=== PATIENT | female | born 1985 | race African-American/Black ===

== ENCOUNTER 2017-01-13 07:21 | Emergency (ER) | payer MEDICAID ==
[~2017-01-13] VITALS: Ht 160 cm; Wt 78.0 kg
[2017-01-13] MEDS ORDERED: HYDROCODONE/ACETAMINOPHEN 10/325MG TABLET PO ONE (08:00)
[2017-01-13 08:44] VITALS: BP 123/89
== END 2017-01-13 09:22 | disposition home or self-care (01) ==
LOC: ER 07:43
DX: M54.5 Low back pain (principal); V49.9XXA Car occupant (driver) (passenger) injured in unspecified traffic accident, initial encounter; Y93.89 Activity, other specified; Y92.89 Other specified places as the place of occurrence of the external cause; Y99.8 Other external cause status
CPT/HCPCS: 99283

== ENCOUNTER 2017-03-14 01:18 | Emergency (ER) | payer MEDICAID ==
[~2017-03-14] VITALS: Ht 152.4 cm; Wt 47.0 kg
[2017-03-14] MEDS ORDERED: HYDROCODONE/ACETAMINOPHEN 5/325MG TABLET PO ONE (09:45)
[2017-03-14] MEDS ORDERED: KETOROLAC 60MG/2ML VIAL IM ONE (09:45)
[2017-03-14 10:03] VITALS: BP 106/70
== END 2017-03-14 11:10 | disposition home or self-care (01) ==
LOC: ER 08:47
DX: S16.1XXA Strain of muscle, fascia and tendon at neck level, initial encounter (principal); Z87.828 Personal history of other (healed) physical injury and trauma; V43.52XA Car driver injured in collision with other type car in traffic accident, initial encounter; Y93.89 Activity, other specified; Y92.488 Other paved roadways as the place of occurrence of the external cause
CPT/HCPCS: 81025; 96372; 99283; J1885; Z7610